=== PATIENT | female | born 1980 | race Two or more races ===

== ENCOUNTER 2016-07-30 09:41 | Emergency (ER) | payer MEDICAID ==
[~2016-07-30] VITALS: Ht 162.6 cm; Wt 53.5 kg
[2016-07-30 10:20] VITALS: BP 102/56
[2016-07-30 10:22] LABS: BASOPHILS % (AUTO) 0.9 % (0.0-2.0); EOSINOPHILS % (AUTO) 1.7 % (0.0-3.0); LYMPHOCYTES % (AUTO) 18.6 % (20.0-45.0); MEAN CORPUSCULAR HEMOGLOBIN 31.5 PG (27.0-31.0); MEAN CORPUSCULAR HGB CONC 34.6 G/DL (32.0-36.0); MEAN CORPUSCULAR VOLUME 91 FL (80-99); NEUTROPHILS % (AUTO) 71.8 % (45.0-75.0); PLATELET COUNT 234 K/UL (150-450); RED BLOOD COUNT 4.25 M/UL (4.20-5.40); RED CELL DISTRIBUTION WIDTH 12.2 % (11.6-14.8); WHITE BLOOD COUNT 5.4 K/UL (4.8-10.8)
[2016-07-30 10:40] LABS: ALANINE AMINOTRANSFERASE 9 U/L (3-33); ALBUMIN/GLOBULIN RATIO 1.7 (1.0-2.7); ANION GAP 16 (5-15); ASPARTATE AMINO TRANSFERASE 12 U/L (5-40); CALCIUM 9.5 mg/dL (8.6-10.2); CARBON DIOXIDE 24 mEQ/L (20-30); CHLORIDE 100 mEQ/L (98-107); CREATININE 0.7 mg/dL (0.5-0.9); GLOMERULAR FILTRATION RATE > 60 mL/min (>60); HEMOLYSIS 0; LIPASE 34 U/L (< 60); POTASSIUM 3.8 mEQ/L (3.4-4.9); SODIUM 140 mEQ/L (135-145); TOTAL PROTEIN 7.6 g/dL (6.6-8.7)
[2016-07-30 10:51] LABS: KETONES,URINE 4+ (NEGATIVE); LEUKOCYTE ESTERASE ,URINE 2+ (NEGATIVE); NITRITE,URINE NEGATIVE (NEGATIVE); PH,URINE 5 (4.5-8.0); PROTEIN,URINE 3+ (NEGATIVE); UROBILINOGEN,URINE 1 MG/DL (0.0-1.0)
[2016-07-30 10:52] LABS: APPEARANCE,URINE CLOUDY
[2016-07-30 11:05] LABS: BACTERIA,URINE MODERATE /HPF; RBC,URINE 20-30 /HPF (0 - 2); SQUAMOUS EPITHELIAL CELL,UR MANY /LPF (NONE/OCC)
[2016-07-30 11:06] LABS: AMORPHOUS SEDIMENT,UR MODERATE /LPF; ICTOTEST NEGATIVE
[2016-07-30 11:15] VITALS: BP 108/59
[2016-07-30] MEDS ORDERED: TYLENOL EXTRA500 MG ORAL (12:29)
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
[2016-07-30 12:57] VITALS: BP_SYST 108; BP_SYST 112; BP_DIAS 59; BP_DIAS 63
--- NOTE | 2016-08-01 09:11 | Diagnostic Imaging Report ---
Indication:Vaginal bleeding. Positive test Technique: Grayscale and duplex Doppler imaging of the pelvis performed utilizing a transabdominal scan and endovaginal scan. Comparison: None Findings: There is small hypoechoic fluid within the endometrial canal and endocervical canal, likely blood. There is a complex cystic structure within the endometrial canal measuring 8 mm in diameter, which is too small to date. There is a structure within the cyst that could be a yolk sac. Both ovaries are seen and appear normal with a few follicles noted. Right ovary is 2.1 x 1.6-1.4 cm. Left ovary 2.9 x 2.8 x 2.3 cm. Uterus measures 7 x 4.7 x 4.0 cm. Impression: Intrauterine suspected given saccular structure that is too small to date with probable yolk sac. Clinically, we have been given information that the serial quantitative beta-hCG has been trending downward, most likely indicating intrauterine demise. Some blood is noted in the endometrial canal at this time. Unremarkable ovaries
== END 2016-07-30 12:58 | disposition home or self-care (01) ==
LOC: EDBD 09:41 → EMR 10:14
DX: O03.9 Complete or unspecified spontaneous abortion without complication (principal)
CPT/HCPCS: 36415; 76801; 76830; 80053; 81003; 81025; 83690; 84702; 85025; 87086; 96360